=== PATIENT | female | born 1990 | race Caucasian/White ===

== ENCOUNTER 2018-02-06 14:14 | Emergency (ER) | payer BC, OTHER ==
[2018-02-06 14:35] VITALS: O2SAT 100
[2018-02-06] MEDS ORDERED: DEMEROL 50 MG IM ONE (14:38)
[2018-02-06] MEDS ORDERED: Phenergan 25 MG INJ IM ONE (14:38)
[2018-02-06] MEDS ORDERED: Phenergan 25 MG INJ ONE (14:41)
[2018-02-06] MEDS ORDERED: DEMEROL 50 MG ONE (14:41)
--- NOTE | 2018-02-06 14:42 | ERPHSYRPT ---
- History of Present Illness Time Seen by Provider: 02/06/18 14:32 Source: patient Exam Limitations: clinical condition Patient Subjective Stated Complaint: pt was hanging xmas decorations when left ankle twisted and she heard a pop. now left ankle pain Triage Nursing Assessment: left anlkle with swelling toes warm, ppp strong Physician History: PATIENT SLIPPED ONTO STEP AND SUSTAINED SEVERE PAIN AND SWELLING TO OUTER ASPECT OF LEFT ANKLE. DENIES DEFORMITY OR BRUISING. Method of Injury: twisted Occurred: just prior to arrival Quality: constant Severity of Pain-Max: severe Severity of Pain-Current: severe Lower Extremities Pain: ankle: left Modifying Factors: Improves With: movement Associated Symptoms: unable to bear weight Allergies/Adverse Reactions: No Known Drug Allergies Allergy (Verified 02/06/18 14:30) Home Medications: No Home Meds 09/16/12 [History] Hx Tetanus, Diphtheria Vaccination/Date Given: Yes Hx Influenza Vaccination/Date Given: Yes Hx Pneumococcal Vaccination/Date Given: No Immunizations Up to Date: Yes - Review of Systems Musculoskeletal: Injury, Joint Pain, Joint Swelling Neurological: No Symptoms - Past Medical History Pertinent Past Medical History: No ENT History: No Pertinent History Cardiac History: No Pertinent History Respiratory History: No Pertinent History Endocrine Medical History: No Pertinent History Musculoskeletal History: Other GI Medical History: No Pertinent History History: No Pertinent History Psycho-Social History: No Pertinent History Female Reproductive Disorders: No Pertinent History Other Medical History: SCOLIOSIS. - Past Surgical History Past Surgical History: Yes Neuro Surgical History: No Pertinent History Cardiac: No Pertinent History Respiratory: No Pertinent History Gastrointestinal: No Pertinent History Genitourinary: No Pertinent History Musculoskeletal: No Pertinent History Female Surgical History: No Pertinent History Other Surgical History: jaw - Social History Smoking Status: Never smoker Exposure to second hand smoke: No Drug Use: none Patient Lives Alone: No - Female History Hx Last Menstrual Period: 3 weeks ago Hx Now: No - Nursing Vital Signs Nursing Vital Signs: Initial Vital Signs Temperature 97.2 F 02/06/18 14:31 Pulse Rate 96 H 02/06/18 14:31 Respiratory Rate 20 02/06/18 14:31 Blood Pressure 122/80 02/06/18 14:31 O2 Sat by Pulse Oximetry 100 02/06/18 14:31 Pain Scale Pain Intensity 4 - Physical Exam General Appearance: moderate distress Ankle Exam: left ankle: pain, soft tissue tenderness, swelling (MARKED TENDERNESS WITH SWELLING LATERAL MALLEOLUS, LIMITED RANGE OF MOTION. LEFT PEDIS PULSE 2+) Neuro/Tendon Exam: normal sensation, normal motor functions Mental Status Exam: alert, oriented x 3, cooperative SpO2 Interpretation: normal SpO2: 100 Oxygen Delivery: Room Air - Radiology Exams Left Foot X-ray Interpretation: Interpreted by me (SPIRAL FRACTURE LEFT LATERAL MALLEOLUS) Left Ankle X-ray Interpretation: Interpreted by me (SPIRAL FRACTURE LEFT LATERAL MALLEOLUS) Ordered Tests: Active Orders 24 hr Category Date Time Status Crutches STAT Care 02/06/18 15:37 Ordered Splint STAT Care 02/06/18 15:37 Ordered ANKLE (3 VIEWS) Stat Exams 02/06/18 14:42 Taken FOOT (MINIMUM 3 VIEWS) Stat Exams 02/06/18 14:43 Taken Medication Summary Discontinued Medications Generic Name Dose Route Start Last Admin Trade Name Freq PRN Reason Stop Dose Admin Meperidine HCl 50 mg 02/06/18 14:38 02/06/18 14:41 Demerol 50 Mg IM 02/06/18 14:39 50 mg STAT ONE Administration Meperidine HCl Confirm 02/06/18 14:41 Demerol 50 Mg Administered 02/06/18 14:42 Dose 50 mg .ROUTE .STK-MED ONE Promethazine HCl 25 mg 02/06/18 14:38 02/06/18 14:41 Phenergan 25 Mg Inj IM 02/06/18 14:39 25 mg STAT ONE Administration Promethazine HCl Confirm 02/06/18 14:41 Phenergan 25 Mg Inj Administered 02/06/18 14:42 Dose 25 mg .ROUTE .STK-MED ONE - Progress Progress: improved, pain not gone completely Progress Note: 02/06/18 15:39 DEMEROL 50MG/PHENERGAN 25MG IM, APPLICATION OF SHORT LEG ORTHOGLASS, SPLINT, WITH CRUTCHES Counseled pt/family regarding: lab results, diagnosis - Departure Time of Disposition: 15:45 Departure Disposition: Home Clinical Impression: SPIRAL FRACTURE LEFT LATERAL MALLEOLUS Condition: Stable Critical Care Time: No Referrals: HELENA CARROLL NP [Primary Care Provider] - Additional Instructions: FOLLOWUP AT THE [facility] [address], TOMORROW FOR CAST PLACEMENT. NORCO 10/325 EVERY 4-6 HOURS FOR PAIN NEEDED. ELEVATE FOOT AND APPLY ICE OVER ANKLE SWELLING EVERY 4 HOURS,30-40 MINUTES FOR 48 HOURS. Prescriptions: Hydrocodone/APAP 10/325 mg [[place] 10/325 MG Tablet] 1 tab PO Q6H PRN PRN # 16 tablet MDD 4 PRN Reason: Pain
[2018-02-06 15:08] VITALS: BP 125/75; PULSE 87
--- NOTE | 2018-02-07 08:35 | XRAY ---
Indication: Pain following fall. Comparison: None 3 nonweightbearing views of the left foot demonstrates minimally displaced lateral malleolus fracture with soft tissue swelling. No other bony, articular, or soft tissue abnormalities.
--- NOTE | 2018-02-07 08:35 | XRAY ---
Indication: Pain following fall. Comparison: None 3 views of the left ankle demonstrates minimally displaced lateral malleolus fracture with soft tissue swelling. No other bony, articular, or soft tissue abnormalities.
== END 2018-02-06 16:10 | disposition home or self-care (01) ==
LOC: ED 14:14
DX: S82.62XA Displaced fracture of lateral malleolus of left fibula, initial encounter for closed fracture (principal); X50.1XXA Overexertion from prolonged static or awkward postures, initial encounter; Y93.89 Activity, other specified; Y92.009 Unspecified place in unspecified non-institutional (private) residence as the place of occurrence of the external cause
CPT/HCPCS: 29515; 73610; 73630; 96372; 99284; J2175; J2550

== ENCOUNTER 2021-10-27 17:28 | Emergency (ER) | payer OTHER ==
--- NOTE | 2021-10-27 17:46 | ERPHSYRPT ---
- History of Present Illness Time Seen by Provider: 10/27/21 17:46 Historian: patient Exam Limitations: no limitations Physician History: This is a 30-year-old white female who is post section approximately [address] Platt out of [facility]. Patient was seen at her contract negotiator's office approximate 11:30 AM and did not have the abdominal pain that she is experiencing now. Patient states she has had a relatively poor appetite since giving . Approxi-1:30 PM earlier this afternoon there was sudden onset of right lower abdominal pain. The incision site jake were removed today in the office. Patient noticed that she has had a fever. She had shaking chills and body aches that are generalized. She has not had vomiting. She did have some diarrhea today. There is been no known exposure to individuals with flulike symptoms or diagnoses. She has not had a cough. Patient denies chest pain. She denies shortness of breath. Patient is breast- feeding but via pumping of her breastmilk. She is aware that she needs to pump her breastmilk 24 hours after she stops any narcotic pain medicine or other medication before feeding the child breastmilk. Timing/Duration: today Abdominal Pain Onset Location: RLQ, suprapubic Pain Radiation: flank Severity of Pain-Max: moderate (Lateral) Severity of Pain-Current: moderate Modifying Factors: Improves With: nothing Associated Symptoms: diarrhea, fever/chills, loss of appetite, nausea, No chest pain, No vomiting Previous symptoms: other (Was seen by her contract negotiator today and jake were removed from her section incision line) Allergies/Adverse Reactions: No Known Drug Allergies Allergy (Verified 10/27/21 17:46) Home Medications: No Home Meds 09/16/12 [History] Hx Tetanus, Diphtheria Vaccination/Date Given: Yes Hx Influenza Vaccination/Date Given: Yes Hx Pneumococcal Vaccination/Date Given: No Travel Risk - International Travel Have you traveled outside of the country in past 3 weeks: No - Coronavirus Screening Are you exhibiting any of the following symptoms?: Yes Symptoms: Fever, Vomiting/Diarrhea, Headaches/Body Aches/Fatigue Close contact with a COVID-19 positive Pt in past 14-21 Days: No - Review of Systems Constitutional: Fever, Chills Eyes: No Symptoms Ears, Nose, & Throat: No Symptoms Respiratory: No Symptoms Cardiac: No Symptoms Abdominal/Gastrointestinal: Abdominal Pain, Nausea, Diarrhea, Appetite Changes Genitourinary Symptoms: No Symptoms Musculoskeletal: Arthralgias, Myalgias Neurological: No Symptoms Psychological: No Symptoms Endocrine: No Symptoms Hematologic/Lymphatic: No Symptoms Immunological/Allergic: No Symptoms All Other Systems: Reviewed and Negative - Past Medical History Pertinent Past Medical History: No Neurological History: No Pertinent History ENT History: No Pertinent History Cardiac History: No Pertinent History Respiratory History: No Pertinent History Endocrine Medical History: No Pertinent History Musculoskeletal History: Other GI Medical History: No Pertinent History History: No Pertinent History Psycho-Social History: No Pertinent History Female Reproductive Disorders: No Pertinent History Other Medical History: SCOLIOSIS AN ADOLESCENT; WORE BRACE - Past Surgical History Past Surgical History: Yes Neuro Surgical History: No Pertinent History Cardiac: No Pertinent History Respiratory: No Pertinent History Gastrointestinal: No Pertinent History Genitourinary: No Pertinent History Musculoskeletal: No Pertinent History Female Surgical History: No Pertinent History Other Surgical History: jaw - Social History Smoking Status: Never smoker Exposure to second hand smoke: No Drug Use: none Patient Lives Alone: No - Nursing Vital Signs Nursing Vital Signs: Initial Vital Signs Temperature 100.6 F 10/27/21 17:28 Pulse Rate 140 H 10/27/21 17:28 Respiratory Rate 24 10/27/21 17:28 Blood Pressure 134/108 10/27/21 17:28 O2 Sat by Pulse Oximetry 99 10/27/21 17:28 Pain Scale Pain Intensity 7 - Physical Exam General Appearance: mild distress (To moderate), alert, anxiety, other (Tearful) Eye Exam: PERRL/EOMI, eyes nml inspection Ears, Nose, Throat Exam: normal ENT inspection, moist mucous membranes Neck Exam: normal inspection, non-tender, supple, full range of motion Respiratory Exam: normal breath sounds, lungs clear, airway intact, No chest tenderness, No respiratory distress Cardiovascular Exam: normal peripheral pulses, tachycardia Gastrointestinal/Abdomen Exam: soft, normal bowel sounds, tenderness (Right lower quadrant and suprapubic region.), guarding, rebound, other (Pfannenstiel incision site intact clean and dry without drainage or evidence of infection) Pelvic Exam: not done Rectal Exam: not done Back Exam: normal inspection, normal range of motion, CVA tenderness, No vertebral tenderness (Bilateral) Extremity Exam: normal inspection, normal range of motion, pelvis stable Neurologic Exam: alert, oriented x 3, cooperative, customer support advisor II-XII nml as tested, normal mood/affect, nml cerebellar function, nml station & gait, sensation nml Skin Exam: normal color, warm, dry Lymphatic Exam: No adenopathy SpO2 Interpretation: normal O2 Delivery: Room Air - Course Nursing assessment & vital signs reviewed: Yes Ordered Tests: Active Orders 24 hr Category Date Time Status IV Insertion STAT Care 10/27/21 17:47 Active ABDOMEN AND PELVIS W/0 CONTRAS [CT] Stat Exams 10/27/21 17:47 Taken AMYLASE Stat Lab 10/27/21 17:50 Completed BLOOD CULTURE Stat Lab 10/27/21 18:10 Received CBC W DIFF Stat Lab 10/27/21 17:50 Completed CMP Stat Lab 10/27/21 17:50 Completed CULTURE,URINE Stat Lab 10/27/21 18:24 Received HCG QUALITATIVE,SERUM Stat Lab 10/27/21 17:50 Completed LIPASE Stat Lab 10/27/21 17:50 Completed Lactic Acid Stat Lab 10/27/21 17:53 Completed Lactic Acid Stat Lab 10/27/21 19:58 Received UA W/RFX CULTURE Stat Lab 10/27/21 18:24 Completed Medication Summary Discontinued Medications Generic Name Dose Route Start Last Admin Trade Name Zia PRN Reason Stop Dose Admin Acetaminophen 650 mg 10/27/21 19:43 10/27/21 20:00 Acetaminophen 325 Mg Tablet PO 10/27/21 19:44 650 mg STAT STA Administration Acetaminophen Confirm 10/27/21 19:54 Acetaminophen 325 Mg Tablet Administered 10/27/21 19:55 Dose 650 mg .ROUTE .STK-MED ONE Hydromorphone HCl 1 mg 10/27/21 17:47 10/27/21 17:57 Hydromorphone 1 Mg/1ml Inj 1 Mg/Ml Syringe IV 10/27/21 17:48 1 mg STAT ONE Administration Hydromorphone HCl Confirm 10/27/21 17:50 Hydromorphone 1 Mg/1ml Inj 1 Mg/Ml Syringe Administered 10/27/21 17:51 Dose 1 mg .ROUTE .STK-MED ONE Hydromorphone HCl 0.5 mg 10/27/21 18:55 10/27/21 19:12 Hydromorphone 1 Mg/1ml Inj 1 Mg/Ml Syringe IV 10/27/21 18:56 0.5 mg STAT ONE Administration Hydromorphone HCl Confirm 10/27/21 19:09 Hydromorphone 1 Mg/1ml Inj 1 Mg/Ml Syringe Administered 10/27/21 19:10 Dose 1 mg .ROUTE .STK-MED ONE Hydromorphone HCl 1 mg 10/27/21 20:10 Hydromorphone 1 Mg/1ml Inj 1 Mg/Ml Syringe IV 10/27/21 20:11 STAT ONE Hydromorphone HCl Confirm 10/27/21 20:18 Hydromorphone 1 Mg/1ml Inj 1 Mg/Ml Syringe Administered 10/27/21 20:19 Dose 1 mg .ROUTE .STK-MED ONE Sodium Chloride 1,000 mls @ 999 mls/hr 10/27/21 17:47 10/27/21 19:20 Sodium Chloride 0.9% 1000 Ml IV 10/27/21 18:47 Infused .Q1H1M STA Infusion Sodium Chloride Confirm 10/27/21 17:50 Sodium Chloride 0.9% 1000 Ml Administered 10/27/21 17:51 Dose 1,000 mls @ ud .ROUTE .STK-MED ONE Sodium Chloride 1,000 mls @ 999 mls/hr 10/27/21 18:56 10/27/21 19:11 Sodium Chloride 0.9% 1000 Ml IV 10/27/21 19:56 999 mls/hr .Q1H1M STA Administration Sodium Chloride Confirm 10/27/21 19:10 Sodium Chloride 0.9% 1000 Ml Administered 10/27/21 19:11 Dose 1,000 mls @ ud .ROUTE .STK-MED ONE Piperacillin Sod/Tazobactam 100 mls @ 200 mls/hr 10/27/21 19:34 10/27/21 20:01 Sod 3.375 gm/ Sodium Chloride IV 10/27/21 20:03 200 mls/hr STAT ONE Administration Sodium Chloride Confirm 10/27/21 19:54 Sodium Chloride 100ml Mini-Bag Plus Administered 10/27/21 19:55 Dose 100 mls @ ud IV .STK-MED ONE Ketorolac Tromethamine 30 mg 10/27/21 18:55 10/27/21 19:20 Ketorolac Tromethamine 30 Mg/Ml Inj IV 10/27/21 18:56 Not Given STAT ONE Ondansetron HCl 4 mg 10/27/21 17:47 10/27/21 17:57 Ondansetron Hcl 4 Mg/2 Ml Vial IV 10/27/21 17:48 4 mg STAT ONE Administration Ondansetron HCl Confirm 10/27/21 17:50 Ondansetron Hcl 4 Mg/2 Ml Vial Administered 10/27/21 17:51 Dose 4 mg .ROUTE .STK-MED ONE Piperacillin Sod/Tazobactam Sod Confirm 10/27/21 19:54 Piperacillin/Tazobactam Sodium 3.375 Gm Vial Administered 10/27/21 19:55 Dose 3.375 gm IV .STK-MED ONE Lab/Rad Data: Laboratory Result Diagrams 10/27/21 17:50 10/27/21 17:50 Laboratory Results 10/27/21 10/27/21 10/27/21 Range/Units 18:24 18:10 17:53 WBC (4.0-10.5) x10^3/uL RBC (4.1-5.4) x10^6/uL Hgb (12.0-16.0) g/dL Hct (35-47) % MCV (78-100) fL MCH (26-32) pg MCHC (32-36) g/dL RDW (11.5-14.0) % Plt Count (150-450) x10^3/uL MPV (7.5-11.0) fL Gran % (36.0-66.0) % Immature Gran % (Auto) (0.00-0.4) % Nucleat RBC Rel Count (0.00-0.1) % Eos # (Auto) (0-0.5) x10^3/uL Immature Gran # (Auto) (0.00-0.03) x10^3u/L Absolute Lymphs (auto) (1.0-4.6) x10^3/uL Absolute Monos (auto) (0.0-1.3) x10^3/uL Absolute Nucleated RBC (0.00-0.01) x10^3u/L Lymphocytes % (24.0-44.0) % Monocytes % (0.0-12.0) % Eosinophils % (0.00-5.0) % Basophils % (0.0-0.4) % Absolute Granulocytes (1.4-6.9) x10^3/uL Basophils # (0-0.4) x10^3/uL Sodium (137-145) mmol/L Potassium (3.5-5.1) mmol/L Chloride (98-107) mmol/L Carbon Dioxide (22-30) mmol/L Anion Gap (5-15) MEQ/L BUN (7-17) mg/dL Creatinine (0.52-1.04) mg/dL Estimated GFR ML/MIN Glucose (74-106) mg/dL Lactic Acid 2.5 H (0.4-2.0) Calcium (8.4-10.2) mg/dL Total Bilirubin (0.2-1.3) mg/dL AST (14-36) U/L ALT (0-35) U/L Alkaline Phosphatase (38-126) U/L Serum Total Protein (6.3-8.2) g/dL Albumin (3.5-5.0) g/dL Amylase (30-110) U/L Lipase (23-300) U/L Serum , Qual (Negative) Urinalys Dipstick Clnc MAIN LAB Urine Color RED (YELLOW) Urine Appearance TURBID (CLEAR) Urine pH 6.5 (5-6) Ur Specific [place] 1.025 (1.005-1.025) POC Urine Protein Conf 100 (Negative) Urine Ketones TRACE (NEGATIVE) Urine Nitrite NEGATIVE (NEGATIVE) Urine Bilirubin SMALL (NEGATIVE) Urine Urobilinogen 1 (0-1) mg/dL Urine Leukocytes SMALL (NEGATIVE) Urine WBC (Auto) >100 (0-5) /HPF Urine RBC (Auto) >101 (0-2) /HPF U Epithel Cells (Auto) RARE (FEW) /HPF Urine Bacteria (Auto) FEW (NEGATIVE) /HPF Urine RBC LARGE (0-5) Bashir/ul Urine Mucus (Auto) SLIGHT (NEGATIVE) /HPF Ur Culture Indicated? YES Urine Glucose NEGATIVE (NEGATIVE) mg/dL Influenza Type A Ag NEGATIVE (NEGATIVE) Influenza Type B Ag NEGATIVE (NEGATIVE) RSV (PCR) NEGATIVE (Negative) SARS-CoV-2 (PCR) NEGATIVE (NEGATIVE) 08/04/1910/27/21 10/27/21 Range/Units 17:50 17:50 17:50 WBC 13.8 H (4.0-10.5) x10^3/uL RBC 3.97 L (4.1-5.4) x10^6/uL Hgb 11.5 L (12.0-16.0) g/dL Hct 35.6 (35-47) % MCV 89.7 (78-100) fL MCH 29.0 (26-32) pg MCHC 32.3 (32-36) g/dL RDW 12.7 (11.5-14.0) % Plt Count 289 (150-450) x10^3/uL MPV 11.1 H (7.5-11.0) fL Gran % 89.8 H (36.0-66.0) % Immature Gran % (Auto) 0.8 H (0.00-0.4) % Nucleat RBC Rel Count 0.0 (0.00-0.1) % Eos # (Auto) 0.07 (0-0.5) x10^3/uL Immature Gran # (Auto) 0.11 H (0.00-0.03) x10^3u/L Absolute Lymphs (auto) 0.80 L (1.0-4.6) x10^3/uL Absolute Monos (auto) 0.40 (0.0-1.3) x10^3/uL Absolute Nucleated RBC 0.00 (0.00-0.01) x10^3u/L Lymphocytes % 5.8 L (24.0-44.0) % Monocytes % 2.9 (0.0-12.0) % Eosinophils % 0.5 (0.00-5.0) % Basophils % 0.2 (0.0-0.4) % Absolute Granulocytes 12.40 H (1.4-6.9) x10^3/uL Basophils # 0.03 (0-0.4) x10^3/uL Sodium 140 (137-145) mmol/L Potassium 3.5 (3.5-5.1) mmol/L Chloride 107 (98-107) mmol/L Carbon Dioxide 21 L (22-30) mmol/L Anion Gap 15.6 H (5-15) MEQ/L BUN 12 (7-17) mg/dL Creatinine 0.80 (0.52-1.04) mg/dL Estimated GFR > 60.0 ML/MIN Glucose 101 (74-106) mg/dL Lactic Acid (0.4-2.0) Calcium 9.2 (8.4-10.2) mg/dL Total Bilirubin 0.70 (0.2-1.3) mg/dL AST 28 (14-36) U/L ALT 19 (0-35) U/L Alkaline Phosphatase 99 (38-126) U/L Serum Total Protein 6.8 (6.3-8.2) g/dL Albumin 3.8 (3.5-5.0) g/dL Amylase 64 (30-110) U/L Lipase 55 (23-300) U/L Serum , Qual POSITIVE (Negative) Urinalys Dipstick Clnc Urine Color (YELLOW) Urine Appearance (CLEAR) Urine pH (5-6) Ur Specific [place] (1.005-1.025) POC Urine Protein Conf (Negative) Urine Ketones (NEGATIVE) Urine Nitrite (NEGATIVE) Urine Bilirubin (NEGATIVE) Urine Urobilinogen (0-1) mg/dL Urine Leukocytes (NEGATIVE) Urine WBC (Auto) (0-5) /HPF Urine RBC (Auto) (0-2) /HPF U Epithel Cells (Auto) (FEW) /HPF Urine Bacteria (Auto) (NEGATIVE) /HPF Urine RBC (0-5) Bashir/ul Urine Mucus (Auto) (NEGATIVE) /HPF Ur Culture Indicated? Urine Glucose (NEGATIVE) mg/dL Influenza Type A Ag (NEGATIVE) Influenza Type B Ag (NEGATIVE) RSV (PCR) (Negative) SARS-CoV-2 (PCR) (NEGATIVE) - Progress Progress: improved, pain not gone completely, re-examined Progress Note: 10/27/21 20:26 CAT scan of the abdomen and pelvis without contrast shows 5 cm x 9 cm x 10 cm left pelvic mass versus hematoma. In addition, there is a 1.7 x 13 x 5 cm incisional fluid collection. Medical decision making: This patient also has a mild urinary tract infection as well. She might have an infected pelvic hematoma. She has leukocytosis and fever. I provided her with Zosyn intravenously. I spoke with Dr. Polo, the contract negotiator covering for Dr. Platt at [facility]. She accepts the patient in transfer. They are to contact us for a bed assignment. Counseled pt/family regarding: lab results, diagnosis, need for follow-up, rad results - Departure Departure Disposition: Transfer Clinical Impression: Postoperative hematoma, Leukocytosis, Fever, Urinary tract infection Condition: Fair Critical Care Time: No Referrals: HELENA CARROLL, PARTITION MAKING MACHINE OPERATOR [Primary Care Provider] - Follow up/PCP as directed
[2021-10-27] MEDS ORDERED: Sodium Chloride 0.9% 1000 ML 1,000 ML IV STA ×2 (17:47→18:56)
[2021-10-27] MEDS ORDERED: Hydromorphone 1 mg/ml Injection IV ONE ×3 (17:47→20:10)
[2021-10-27] MEDS ORDERED: Zofran 4 MG/2 ML VIAL IV ONE (17:47)
[2021-10-27] MEDS ORDERED: Hydromorphone 1 mg/ml Injection ONE ×3 (17:50→20:18)
[2021-10-27] MEDS ORDERED: Zofran 4 MG/2 ML VIAL ONE (17:50)
[2021-10-27] MEDS ORDERED: Sodium Chloride 0.9% 1000 ML 1,000 ML ONE ×3 (17:50→20:51)
[2021-10-27 18:19] LABS: Basophil (Absolute #) 0.03 x10^3/uL (0-0.4); Eosinophil % 0.5 % (0.00-5.0); Eosinophil (Absolute #) 0.07 x10^3/uL (0-0.5); Hematocrit 35.6 % (35-47); Hemoglobin 11.5 g/dL (12.0-16.0); Lymphocytes % 5.8 % (24.0-44.0); Mean Cell Volume 89.7 fL (78-100); Mean Corpuscular Hgb Concent. 32.3 g/dL (32-36); Mean Platelet Volume 11.1 fL (7.5-11.0); Monocytes % 2.9 % (0.0-12.0); Neutrophil % 89.8 % (36.0-66.0); Platelet Count 289 x10^3/uL (150-450); Red Blood Count 3.97 x10^6/uL (4.1-5.4); Red Cell Distribution Width 12.7 % (11.5-14.0); White Blood Count 13.8 x10^3/uL (4.0-10.5)
[2021-10-27 18:44] LABS: ALBUMIN 3.8 g/dL (3.5-5.0); ALKALINE PHOSPHATASE 99 U/L (38-126); AMYLASE 64 U/L (30-110); ANION GAP 15.6 MEQ/L (5-15); BLOOD UREA NITROGEN 12 mg/dL (7-17); CHLORIDE 107 mmol/L (98-107); Calcium 9.2 mg/dL (8.4-10.2); Carbon Dioxide 21 mmol/L (22-30); EST GLOMERULAR FILTRATION RATE > 60.0 ML/MIN; Glucose 101 mg/dL (74-106); LIPASE 55 U/L (23-300); Potassium 3.5 mmol/L (3.5-5.1); SGOT/AST 28 U/L (14-36); SGPT/ALT 19 U/L (0-35); SODIUM 140 mmol/L (137-145); Total Protein 6.8 g/dL (6.3-8.2)
[2021-10-27] MEDS ORDERED: TORAdol 30 mg Injection IV ONE (18:55)
[2021-10-27 19:00] LABS: INFLUENZA A NEGATIVE (NEGATIVE); INFLUENZA B NEGATIVE (NEGATIVE); RESPIRATORY SYNCTIAL VIRUS NEGATIVE (Negative); SARS-CoV-2 Xpert Express NEGATIVE (NEGATIVE)
[2021-10-27 19:10] LABS: Appearance TURBID (CLEAR)
[2021-10-27 19:11] LABS: Bilirubin SMALL (NEGATIVE); Dipstick done @ ? MAIN LAB; Glucose NEGATIVE (NEGATIVE); Ketones TRACE (NEGATIVE); Nitrite NEGATIVE (NEGATIVE); Ph 6.5 (5-6); Protein,Urine Dip 100 (Negative); RBC LARGE Ery/ul (0-5); Specific Gravity 1.025 (1.005-1.025); Urobilinogen 1 mg/dL (0-1)
[2021-10-27 19:30] LABS: Bacteria FEW /HPF (NEGATIVE); Epithelial Cells RARE /HPF (FEW); Mucus SLIGHT /HPF (NEGATIVE); RBC >101 /HPF (0-2); Urine Cultured Indicated? YES; WBC >100 /HPF (0-5)
[2021-10-27] MEDS ORDERED: PIPERACILLIN/TAZOBACTAM 3.375 GM in Sodium Chloride 100ML MINI-BAG PLUS 100 ML IV ONE (19:34)
[2021-10-27] MEDS ORDERED: TYLENOL 325 MG PO STA (19:43)
[2021-10-27] MEDS ORDERED: TYLENOL 325 MG ONE (19:54)
[2021-10-27] MEDS ORDERED: Sodium Chloride 100ML MINI-BAG PLUS 100 ML IV ONE (19:54)
[2021-10-27] MEDS ORDERED: PIPERACILLIN/TAZOBACTAM IV ONE (19:54)
[2021-10-27] MEDS ORDERED: Sodium Chloride 0.9% 1000 ML 1,000 ML IV SCH (20:45)
[2021-10-27 21:11] VITALS: BP 118/72; PULSE 155; O2SAT 94
--- NOTE | 2021-10-28 08:59 | XRAY ---
Indication: Severe abdomen pain. Status post section 9 days ago. Multiple contiguous axial images obtained through the abdomen and pelvis without contrast. Comparison: September 16, 2012 Lung bases are clear. Heart not enlarged. Noncontrasted stomach and bowel loops appear nonobstructed. A few mild fluid distended small bowel loops with fluid leveling, ileus versus enteritis. Normal appendix. Enlarged uterus consistent with recent . Small pelvic free fluid presumed related to clinically reported section. Left pelvis demonstrates a 5 x 9 x 10 cm soft tissue mass with minimal central calcifications. Large hematoma is also offered for clinical consideration based on recent section. No free air. Left kidney demonstrates 2-3 mm nonobstructing calculus. Remaining liver, gallbladder, pancreas, spleen, adrenal glands, kidneys, ureters, bladder, and aorta are unremarkable for noncontrast exam. Osseous structures intact with moderate double curvature thoracolumbar scoliosis. Lower anterior abdominal wall demonstrates deep incisional fluid collection measuring 1.7 x 13 x 5 cm. Impression: 1. Enlarged uterus consistent with recent . Also small pelvic free fluid presumed related to recent section. Suspicious left pelvic soft tissue mass versus postoperative hematoma as detailed. 2. Lower abdominal wall incisional fluid collection, possibly hematoma/seroma. Infection not completely excluded in the right clinical setting. 3. Incidental nonobstructing left renal micro-calculus and double curvature scoliosis.
== END 2021-10-27 21:30 | disposition short-term general hospital (02) ==
LOC: ED 17:28
DX: O90.2 Hematoma of obstetric wound (principal); N99.840 Postprocedural hematoma of a genitourinary system organ or structure following a genitourinary system procedure; O86.20 Urinary tract infection following delivery, unspecified; N39.0 Urinary tract infection, site not specified; D72.829 Elevated white blood cell count, unspecified; R50.9 Fever, unspecified; R10.31 Right lower quadrant pain; R10.2 Pelvic and perineal pain
CPT/HCPCS: 0241U; 36000; 36415; 74176; 80053; 81015; 82150; 83605; 83690; 84703; 85025; 87040; 87086; 96360; 96374; 96375; 96376; 99285; J1170; J2405; A9270-GY